=== PATIENT | male | born 1960 | race Caucasian/White ===

== ENCOUNTER → 2017-08-12 07:57 | Outpatient (CLI) | payer OTHER, SELFPAY ==
[2017-08-12 09:59] LABS: Anion Gap 6 (5-15); BUN 15 mg/dL (7-18); BUN/Creat Ratio 13.4 RATIO (10-20); Calcium,Total 8.3 mg/dL (8.5-10.1); Chloride 109 mmol/L (98-107); Cholesterol 171 mg/dL (200); Creatinine, Serum 1.12 mg/dL (0.70-1.30); EST Glomerular Filtration Rate 72 mL/min (>60); Est Glom Filt Rate - Afr Amer 88 mL/min (>60); Glucose 97 mg/dL (74-106); High Density Lipoprotein 51 mg/dL; Potassium 4.2 mmol/L (3.5-5.1); Sodium Level 139 mmol/L (136-145); Triglycerides 56 mg/dL; Very Low Density Lipoprotein 11 mg/dL (5-40)
== END ==
PROVIDERS: Family Provider Family Medicine; PCP Family Medicine; Visit Provider Family Medicine
DX: I10 Essential (primary) hypertension (principal)
CPT/HCPCS: 36415; 80048; 80061

== ENCOUNTER → 2017-09-03 09:03 | Outpatient (CLI) | payer OTHER, SELFPAY | PROVIDERS: Family Provider Family Medicine; PCP Family Medicine; Visit Provider Family Medicine | DX: N52.9 Male erectile dysfunction, unspecified (principal) | CPT/HCPCS: 36415; 84403 ==

== ENCOUNTER 2018-03-03 09:02 | Day surgery (SDC) | payer OTHER, SELFPAY ==
[2018-03-03] VITALS (9 sets, daily range): BP systolic 120–157; BP diastolic 82–103; PULSE 59–94; RESP 14–18; TEMP 35.9–36.8; O2SAT 60–100; BMI 24.4
--- NOTE | 2018-03-03 10:22 | PCM.HP.STD ---
Problem List (1) Personal history of colonic polyps Status: Acute History of Present Illness Date of Admission: 03/03/18 The patient is a 57 year old M was a personal history of colon polyps. States he had a colonoscopy 3 years ago and 3 polyps removed at that time all benign. He denies any bright red blood per rectum or melena. No abdominal pain. No change in bowel habits. No unexpected weight loss. He otherwise enjoys good health. His is Anai Past Medical History Allergies No Known Allergies Allergy (Verified 03/02/18 09:12) Home Medications: Ambulatory Orders Medication Instructions Recorded NK 03/02/18 Smoking Status: Former smoker Tobacco Use: Non-smoker Review of Systems Constitutional: Denies: Anorexia HEENT: Denies: Difficulty Swallowing Cardiovascular: Denies: Chest Pain, Claudication Respiratory: Denies: Cough Gastrointestinal: Denies: Abdominal Pain, Melena Endocrine: Denies: Change in Body Habitus VTE Information - Inpt Only VTE Present on Admission: No Patient Problems: Active and Suspected Problems Personal history of colonic polyps (Acute) - Physical Exam General: Alert, Oriented x3, Cooperative Oral: Moist Mucosa Neck: Supple Lungs: Clear to auscultation Cardiovascular: Regular rate, Regular Rhythm Abdomen: Bowel Sounds Present, Soft, Non Tender Extremities: No Calf Tenderness Psych/Mental Status: Normal Affect Vital Signs Temp Pulse Resp BP Pulse Ox 98.3 F 63 18 143/89 H 98 03/03/18 09:20 03/03/18 09:20 03/03/18 09:20 03/03/18 09:20 03/03/18 09:20 Oxygen Delivery Method Room Air Weight: 179 lb 14.355 oz Body Mass Index (BMI) 24.4 Assessment/Plan All Active Problems Personal history of colonic polyps (Acute) I am recommending the patient a surveillance colonoscopy. He is aware of the technique, benefits, risks, alternatives. He has had an opportunity to ask and have questions answered. We will proceed as noted. He presents via our open access program today. Yuri Patel M.D., F.A.C.S.
--- NOTE | 2018-03-03 11:04 | OP.ENDO_ITS ---
Patient Name: Ronni Strange Procedure Date: 03/03/2018 10:29 AM Date of : 1960 Age: 57 Procedure: Colonoscopy Indications: High risk colon cancer surveillance: Personal history of colonic polyps Providers: Yuri Patel MD Referring MD: Yuri Patel MD Medicines: Midazolam 5 mg IV, Meperidine 150 mg IV Patient Profile: Last Colonoscopy: 3 years ago. Complications: No immediate complications. Procedure: Pre-Anesthesia Assessment: - Prior to the procedure, a History and Physical was performed, and patient medications and allergies were reviewed. The patient's tolerance of previous anesthesia was also reviewed. The risks and benefits of the procedure and the sedation options and risks were discussed with the patient. All questions were answered, and informed consent was obtained. Prior Anticoagulants: The patient has taken no previous anticoagulant or antiplatelet agents. ASA Grade Assessment: II - A patient with mild systemic disease. After reviewing the risks and benefits, the patient was deemed in satisfactory condition to undergo the procedure. After I obtained informed consent, the scope was passed under direct vision. Throughout the procedure, the patient's blood pressure, pulse, and oxygen saturations were monitored continuously. The colonoscope was introduced through the anus and advanced to the cecum, identified by appendiceal orifice and ileocecal valve. The colonoscopy was performed without difficulty. The patient tolerated the procedure well. The quality of the bowel preparation was good. The ileocecal valve and the appendiceal orifice were photographed. Moderate Sedation: Moderate (conscious) sedation was personally administered by the endoscopist. The following parameters were monitored: oxygen saturation, heart rate, blood pressure, and response to care. Total physician intraservice time was 15 minutes. Scope In: 10:41:44 AM Scope Withdrawal Time 0 hours 10 minutes 58 seconds Scope Out: 10:59:26 AM Total Procedure Duration Time 0 hours 17 minutes 42 seconds Findings: The perianal and digital rectal examinations were normal. Scattered diverticula were found in the sigmoid colon. The exam was otherwise without abnormality. Impression: - Diverticulosis in the sigmoid colon. - The examination was otherwise normal. - No specimens collected. Recommendation: - Discharge patient to home. - Resume previous diet. - Continue present medications. - Repeat colonoscopy in 5 years for surveillance. Procedure Code(s): --- Professional --- 54849, Colonoscopy, flexible; diagnostic, including collection of specimen(s) by brushing or washing, when performed (separate procedure) 66959, 59, Moderate sedation services provided by the same physician or other qualified health skin care specialist performing the diagnostic or therapeutic service that the sedation supports, requiring the presence of an independent trained observer to assist in the monitoring of the patient's level of consciousness and physiological status; initial 15 minutes of intraservice time, patient age 5 years or older Diagnosis Code(s): --- Professional --- Z86.010, Personal history of colonic polyps K57.30, Diverticulosis of large intestine without perforation or abscess without bleeding CPT copyright 2017 [employer]. All rights reserved. The codes documented in this report are preliminary and upon catalyst impregnator review may be revised to meet current compliance requirements. Yuri Patel MD 03/03/2018 11:04:22 AM This report has been signed electronically. Number of Addenda: 0 Note Initiated On: 03/03/2018 10:29 AM
--- OUTSIDE RECORDS SUMMARY | 2018-06-04 15:44 | XMS RPT_ITS ---
:1960 Author Organization OHIP Care Team Providers Name Role Phone BERNARDINO ANNE III Attending Unavailable Cebul, Yuri Attending Unavailable Cebul, Yuri Referring Unavailable Cebul III, Bernardino Primary Care Unavailable CebulYuri Attending Unavailable CebulYuri Referring Unavailable Cebul III, Bernardino Primary Care Unavailable CebulYuri Consulting Unavailable Cebul III, Bernardino Attending Unavailable Cebul III, Bernardino Primary Care Unavailable Cebul III, Bernardino Referring Unavailable Cebul III, Bernardino Attending Unavailable Cebul III, Bernardino Referring Unavailable Cebul III, Bernardino Primary Care Unavailable Nurse, Marcelle Attending Unavailable Cebul III, Bernardino Referring Unavailable PROBLEMS PROBLEMS No Problem Records FoundPROCEDURES PROCEDURES No Procedure Records FoundRESULTS RESULTS OPERATIVE REPORT - Observed: 03/03/2018 Status: F Source: [facility] ENDOSCOPY 11:04 AM [facility] REPOSITORY [facility] Medical Records Department [address] [place] [address] Operative Report - Endoscopy MR#: [id number] Acct: [id number] Name: RONNI STRANGE Rep #: [id number] : 1960 57 From: Yuri Anne MD PCP: Bernardino Anne III, MD Status: REG SD Patient Name: Ronni Strange Procedure Date: 03/03/2018 10:29 AM Date of : 1960 Age: 57 Procedure: Colonoscopy Indications: High risk colon cancer surveillance: Personal history of colonic polyps Providers: Yuri Anne MD Referring MD: Yuri Anne MD Medicines: Midazolam 5 mg IV, Meperidine 150 mg IV Patient Profile: Last Colonoscopy: 3 years ago. Complications: No immediate complications. Procedure: Pre-Anesthesia Assessment: - Prior to the procedure, a History and Physical was performed, and patient medications and allergies were reviewed. The patient's tolerance of previous anesthesia was also reviewed. The risks and benefits of the procedure and the sedation options and risks were discussed with the patient. All questions were answered, and informed consent was obtained. Prior Anticoagulants: The patient has taken no previous anticoagulant or antiplatelet agents. ASA Grade Assessment: II - A patient with mild systemic disease. After reviewing the risks and benefits, the patient was deemed in satisfactory condition to undergo the procedure. After I obtained informed consent, the scope was passed under direct vision. Throughout the procedure, the patient's blood pressure, pulse, and oxygen saturations were monitored continuously. The colonoscope was introduced through the anus and advanced to the cecum, identified by appendiceal orifice and ileocecal valve. The colonoscopy was performed without difficulty. The patient tolerated the procedure well. The quality of the bowel preparation was good. The ileocecal valve and the appendiceal orifice were photographed. Moderate Sedation: Moderate (conscious) sedation was personally administered by the endoscopist. The following parameters were monitored: oxygen saturation, heart rate, blood pressure, and response to care. Total physician intraservice time was 15 minutes. Scope In: 10:41:44 AM Scope Withdrawal Time 0 hours 10 minutes 58 seconds Scope Out: 10:59:26 AM Total Procedure Duration Time 0 hours 17 minutes 42 seconds Findings: The perianal and digital rectal examinations were normal. Scattered diverticula were found in the sigmoid colon. The exam was otherwise without abnormality. Impression: - Diverticulosis in the sigmoid colon. - The examination was otherwise normal. - No specimens collected. Recommendation: - Discharge patient to home. - Resume previous diet. - Continue present medications. - Repeat colonoscopy in 5 years for surveillance. Procedure Code(s): --- Professional --- 54229, Colonoscopy, flexible; diagnostic, including collection of specimen(s) by brushing or washing, when performed (separate procedure) 22933, 59, Moderate sedation services provided by the same physician or other qualified health home care physical therapist performing the diagnostic or therapeutic service that the sedation supports, requiring the presence of an independent trained observer to assist in the monitoring of the patient's level of consciousness and physiological status; initial 15 minutes of intraservice time, patient age 5 years or older Diagnosis Code(s): --- Professional --- Z86.010, Personal history of colonic polyps K57.30, Diverticulosis of large intestine without perforation or abscess without bleeding CPT copyright 2017 [employer]. All rights reserved. The codes documented in this report are preliminary and upon division roadmaster review may be revised to meet current compliance requirements. Yuri Anne MD 03/03/2018 11:04:22 AM This report has been signed electronically. Number of Addenda: 0 Note Initiated On: 03/03/2018 10:29 AM 03/03/18 1104 Date Yuri Anne MD Cosigner Signature: Date (if indicated) CC: Bernardino Anne III, MD; Yuri Anne MD Date Dictated: 03/03/18 1029 Date Transcribed: Nuclear Fuel Enrichment Technician: RUTH Signed HISTORY AND PHYSICAL Observed: 03/03/2018 Status: F Source: [place] EXAM 10:34 AM [facility] REPOSITORY [facility] Medical Records Department [address] [place] [address] History and Physical 03/03/18 1022 MR#: [id number] Acct: [id number] Name: RONNI STRANGE Rep #: [id number] : 1960 57 From: Yuri Anne MD PCP: Bernardino Anne III, MD Status: REG [facility] Y Location: EN Problem List (1) Personal history of colonic polyps Status: Acute History of Present Illness Date of Admission: 03/03/18 The patient is a 57 year old M was a personal history of colon polyps. States he had a colonoscopy 3 years ago and 3 polyps removed at that time all benign. He denies any bright red blood per rectum or melena. No abdominal pain. No change in bowel habits. No unexpected weight loss. He otherwise enjoys good health. His is Idalia Past Medical History Allergies No Known Allergies Allergy (Verified 03/02/18 09:12) Home Medications: Ambulatory Orders Medication Instructions Recorded NK 03/02/18 Smoking Status: Former smoker Tobacco Use: Non-smoker Review of Systems Constitutional: Denies: Anorexia HEENT: Denies: Difficulty Swallowing Cardiovascular: Denies: Chest Pain, Claudication Respiratory: Denies: Cough Gastrointestinal: Denies: Abdominal Pain, Melena Endocrine: Denies: Change in Body Habitus VTE Information - Inpt Only VTE Present on Admission: No Patient Problems: Active and Suspected Problems Personal history of colonic polyps (Acute) - Physical Exam General: Alert, Oriented x3, Cooperative Oral: Moist Mucosa Neck: Supple Lungs: Clear to auscultation Cardiovascular: Regular rate, Regular Rhythm Abdomen: Bowel Sounds Present, Soft, Non Tender Extremities: No Calf Tenderness Psych/Mental Status: Normal Affect Vital Signs Temp Pulse Resp BP Pulse Ox 98.3 F 63 18 143/89 H 98 03/03/18 09:20 03/03/18 09:20 03/03/18 09:20 03/03/18 09:20 03/03/18 09:20 Oxygen Delivery Method Room Air Weight: 179 lb 14.355 oz Body Mass Index (BMI) 24.4 Assessment/Plan All Active Problems Personal history of colonic polyps (Acute) I am recommending the patient a surveillance colonoscopy. He is aware of the technique, benefits, risks, alternatives. He has had an opportunity to ask and have questions answered. We will proceed as noted. He presents via our open access program today. Yuri Anne M.D., F.A.C.S. 03/03/18 1034 <Electronically signed by Yuri Anne MD> Date Yuri Anne MD Cosigner Signature: Date (if applicable) CC: Bernardino Anne III, MD; Yuri Anne MD Signed TESTOSTERONE, SERUM TOTAL Collected: 09/03/2017 Status: F Source: [place] 9:08 AM [facility] REPOSITORY TYPE CODE TESTS RESULT OUT OF REFERENCE UNITS RANGE LAB L509.3000 ng/dL Testosterone Normal 523.82 Result Comment: NORMAL REFERENCE RANGES MALE AGE <50 123.06 - 813.86 ng/dL MALE AGE >50 89.98 - 780.10 ng/dL FEMALE PREMENOPAUSE AGE 21 - 60 9.01 - 47.94 ng/dL FEMALE POSTMENOPAUSE AGE 45 - 89 <7.00 - 45.62 ng/dL REFERENCE RANGE AND METHODOLOGY CHANGED 03/05/2017 Performed By: #### L509.3000 #### [facility] [place], [address] PROGRESS Observed: 08/28/2017 Status: COMPLETED Source: [facility] 9:13 AM [facility] REPOSITORY O ID: [id number] Author: Bernardino Anne III Service: (none) Author Type: Physician Type: Progress Notes Filed: 08/28/2017 12:46 PM Note Text: SUBJECTIVE: Chief Complaint: Ronni Strange is a 56 year old male who presents for comprehensive problem evaluation. New concerns today include 1. hypertension: home log [id number]/75- 153/80 2. hx of colon polyps in 2014; tubular adenoma 3. lab review 4. fell down couple of steps in the dark. Thinks he may have sustained a groin injury and some erectile dysfunction. Able to experience erection upon awakening and has normal libido 5. pain bottom L heel much of the time. Limping. Sometimes worse after sitting for awhile or upon awakening. Tried heel cushion. 6. previous episode of anxiety, he never took any of the prescribed ativan. Exercises regularly Minimal exercise associated with work or ADL's Prostate cancer screening up to date Yes Colon cancer screening is up to date Yes Last colonoscopy was done 2014 Cholesterol screening up to date Yes Current Outpatient Prescriptions on File Prior to Visit: LORazepam (ATIVAN) 0.5 mg tab Take 1 tablet by mouth three times daily as needed. No current facility-administered medications on file prior to visit. PAST MEDICAL HISTORY Diagnosis Date - Anxiety 06/13/2014 - Benign colon polyp 02/28/15 - Essential hypertension, benign 06/13/2014 - Lumbago PAST SURGICAL HISTORY Procedure Laterality Date - COLONOSCOP W/ OR W/O [facility]SH SPEC 02/28/15 Colonoscopy [facility] out pt - VASECTOMY FAMILY HISTORY Problem Relation Age of Onset - Hypertension Father - colon polyps [Other] [OTHER] Father benign Social History Marital status: Spouse name: Years of education: Number of children: 2 Occupational History Occupation Employer Comment [employer] Social History Main Topics Smoking status: Former Smoker Packs/day: 0.00 Years: 0.00 Smokeless tobacco: Never Used Comment: occassional smokers in 's Alcohol use: Yes Drug use: No Sexual activity: Yes Partners with: Female control/protection: Surgical Immunization History Administered Date(s) Administered DT(PEDIATRIC) 03/07/1975 04/21/1980 06/14/1996 DTP/HIB 01/29/1963 02/26/1963 03/23/1963 05/18/1964 09/11/1967 MMR 03/07/1975 OPV 01/29/1963 02/28/1963 04/02/1963 09/11/1967 Tdap (Age 7+) 08/20/2006 ACTIVE PROBLEM LIST Essential Hypertension, Benign Anxiety Bph (Benign Prostatic Hypertrophy) With Urinary Retention Family History of Colonic Polyps Benign Colon Polyp REVIEW OF SYSTEMS General: Denies fever, chills, night sweats, or changes in weight. Dermatologic: Denies any new skin conditions, rashes or changing moles. Eyes: ENT: Respiratory: Denies any cough, dyspnea, or wheezing. Cardiovascular: Denies any chest pain with exertion or at rest, palpitations, syncope, or edema. Gastrointestinal: Denies any nausea, vomiting, abdominal pain, heartburn, changes in bowel habit, Denies any rectal bleeding. Genitourinary: Denies Denies problems with urinary stream., Denies dysuria, frequency, urgency, incontinence, erectile dysfunction, hematuria and nocturia., see HPI Musculoskeletal: Denies any joint swelling, crepitus, joint pain, or loss of range of motion., Denies back pain. Neurologic: Denies any headaches, tremors, dizziness, vertigo, memory loss, confusion., Denies weakness, numbness or tingling. Psychiatric: Denies any sleeping problems, history of abuse, marital discord., Denies any anxiety or depression. Hematologic/Lymphatic/Immunologic: Denies anemia, bruising, bleeding abnormalities. Endocrine: Denies any heat or cold intolerance, polyuria or polydipsia. OBJECTIVE: PHYSICAL EXAMINATION: BP 131/87 Pulse 61 Resp 16 Ht 182.9 cm (6') Wt 84.4 kg (186 lb) BMI 25.23 kg/m? GENERAL APPEARANCE Well appearing, alert, in no acute distress, well-hydrated, well nourished. SKIN: Skin color, texture, turgor normal, no suspicious rashes or lesions HEAD: No significant findings. NECK: Supple, no lymphadenopathy, normal thyroid, no carotid bruits and no JVD BACK: Back symmetric, Normal curvature, No CVAT. LUNGS: normal pulmonary exam and clear to auscultation and percussion HEART: Normal PMI, Regular rate and rhythm, Normal heart sounds, S1 and S2 and No murmurs. BREASTS: ABDOMEN: Soft, Non-tender, No palpable masses, Normal bowel sounds, No hepatosplenomegaly. and no abdominal bruits. EXTREMTIES: extremities normal, no deformities, no skin discoloration, no edema, normal pulses bilaterally., strong femoral pulses Localized tenderness bilaterally left heel NEURO: Awake, alert and oriented x 3, Reflexes symmetrical, Normal gait, No involuntary motions., muscle tone normal, muscle strength normal GENITALIA: Penis normal, no urethral discharge, scrotum normal to palpation, no hernias RECTAL: Anus normal, no anorectal masses, Prostate normal size, consistency, no nodules, and no tenderness ASSESSMENT: hypertension--well controlled groin muscle strain?resolved Erectile dysfunction?probably a psychological component Left plantar fasciitis History of tubular adenoma polyp of the colon, 2015 PLAN: healthy diet and regular physical activity consider viagra if needed monitor home BP early breastfeeding care specialist testosterone level stretching exercises for bottoms of feet. wear supportive shoes with good arch support screening colonoscopy 40 min TOMASA Grajeda MD, III MD CNOV Observed: 08/28/2017 Status: COMPLETED Source: [facility] 8:40 AM [facility] Office Visit (FAMPWS) RONNI STRANGE ([id number]) 1960 M Date Time Provider Department 08/28/17 8:40 AM BERNARDINO ANNE III During your visit today, we recorded the following information about you: Pulse Respiration Blood pressure Weight 61/minute 16/minute 131/87 84.4 kg Height 1.829 m Bernardino Anne III MD 08/28/2017 12:46 PM Signed SUBJECTIVE: Chief Complaint: Ronni Strange is a 56 year old male who presents for comprehensive problem evaluation. New concerns today include 1. hypertension: home log [id number]/75- 153/80 2. hx of colon polyps in 2014; tubular adenoma 3. lab review 4. fell down couple of steps in the dark. Thinks he may have sustained a groin injury and some erectile dysfunction. Able to experience erection upon awakening and has normal libido 5. pain bottom L heel much of the time. Limping. Sometimes worse after sitting for awhile or upon awakening. Tried heel cushion. 6. previous episode of anxiety, he never took any of the prescribed ativan. Exercises regularly Minimal exercise associated with work or ADL's Prostate cancer screening up to date Yes Colon cancer screening is up to date Yes Last colonoscopy was done 2014 Cholesterol screening up to date Yes Current Outpatient Prescriptions on File Prior to Visit: LORazepam (ATIVAN) 0.5 mg tab Take 1 tablet by mouth three times daily as needed. No current facility-administered medications on file prior to visit. PAST MEDICAL HISTORY Diagnosis Date - Anxiety 06/13/2014 - Benign colon polyp 02/28/15 - Essential hypertension, benign 06/13/2014 - Lumbago PAST SURGICAL HISTORY Procedure Laterality Date - COLONOSCOP W/ OR W/O BRSH SPEC 02/28/15 Colonoscopy [facility] out pt - VASECTOMY FAMILY HISTORY Problem Relation Age of Onset - Hypertension Father - colon polyps [Other] [OTHER] Father benign Social History Marital status: Spouse name: Years of education: Number of children: 2 Occupational History Occupation Employer Comment [employer] Social History Main Topics Smoking status: Former Smoker Packs/day: 0.00 Years: 0.00 Smokeless tobacco: Never Used Comment: occassional smokers in Alcohol use: Yes Drug use: No Sexual activity: Yes Partners with: Female control/protection: Surgical Immunization History Administered Date(s) Administered DT(PEDIATRIC) 03/07/1975 04/21/1980 06/14/1996 DTP/HIB 01/29/1963 02/26/1963 03/23/1963 05/18/1964 09/11/1967 MMR 03/07/1975 OPV 01/29/1963 02/28/1963 04/02/1963 09/11/1967 Tdap (Age 7+) 08/20/2006 ACTIVE PROBLEM LIST Essential Hypertension, Benign Anxiety Bph (Benign Prostatic Hypertrophy) With Urinary Retention Family History of Colonic Polyps Benign Colon Polyp REVIEW OF SYSTEMS General: Denies fever, chills, night sweats, or changes in weight. Dermatologic: Denies any new skin conditions, rashes or changing moles. Eyes: ENT: Respiratory: Denies any cough, dyspnea, or wheezing. Cardiovascular: Denies any chest pain with exertion or at rest, palpitations, syncope, or edema. Gastrointestinal: Denies any nausea, vomiting, abdominal pain, heartburn, changes in bowel habit, Denies any rectal bleeding. Genitourinary: Denies Denies problems with urinary stream., Denies dysuria, frequency, urgency, incontinence, erectile dysfunction, hematuria and nocturia., see HPI Musculoskeletal: Denies any joint swelling, crepitus, joint pain, or loss of range of motion., Denies back pain. Neurologic: Denies any headaches, tremors, dizziness, vertigo, memory loss, confusion., Denies weakness, numbness or tingling. Psychiatric: Denies any sleeping problems, history of abuse, marital discord., Denies any anxiety or depression. Hematologic/Lymphatic/Immunologic: Denies anemia, bruising, bleeding abnormalities. Endocrine: Denies any heat or cold intolerance, polyuria or polydipsia. OBJECTIVE: PHYSICAL EXAMINATION: BP 131/87 Pulse 61 Resp 16 Ht 182.9 cm (6') Wt 84.4 kg (186 lb) BMI 25.23 kg/m? GENERAL APPEARANCE Well appearing, alert, in no acute distress, well-hydrated, well nourished. SKIN: Skin color, texture, turgor normal, no suspicious rashes or lesions HEAD: No significant findings. NECK: Supple, no lymphadenopathy, normal thyroid, no carotid bruits and no JVD BACK: Back symmetric, Normal curvature, No CVAT. LUNGS: normal pulmonary exam and clear to auscultation and percussion HEART: Normal PMI, Regular rate and rhythm, Normal heart sounds, S1 and S2 and No murmurs. BREASTS: ABDOMEN: Soft, Non-tender, No palpable masses, Normal bowel sounds, No hepatosplenomegaly. and no abdominal bruits. EXTREMTIES: extremities normal, no deformities, no skin discoloration, no edema, normal pulses bilaterally., strong femoral pulses Localized tenderness bilaterally left heel NEURO: Awake, alert and oriented x 3, Reflexes symmetrical, Normal gait, No involuntary motions., muscle tone normal, muscle strength normal GENITALIA: Penis normal, no urethral discharge, scrotum normal to palpation, no hernias RECTAL: Anus normal, no anorectal masses, Prostate normal size, consistency, no nodules, and no tenderness ASSESSMENT: hypertension--well controlled groin muscle strain?resolved Erectile dysfunction?probably a psychological component Left plantar fasciitis History of tubular adenoma polyp of the colon, 2014 PLAN: healthy diet and regular physical activity consider viagra if needed monitor home BP early breastfeeding care specialist testosterone level stretching exercises for bottoms of feet. wear supportive shoes with good arch support screening colonoscopy 40 min TOMASA Grajeda MD, III MD Referring Provider: SELF [200] Allergies As of Date: 08/28/2017 Noted Allergy Reaction TAMBACOR [Other] 01/04/2005 Date Reviewed: 08/28/2017 Reviewed by: Brianda ([facility]) JAVIER Max - Fully Assessed Reason for Visit: Physical [83] Primary Visit Diagnosis:Essential hypertension, benign [I10] Other Visit Diagnoses:Anxiety [F41.9] Benign colon polyp [K63.5] Encounter for routine adult medical exam with abnormal findings [Z00.01] Plantar fasciitis [M72.2] Erectile dysfunction, unspecified erectile dysfunction type [N52.9] Prescriptions as of 08/28/2017 Sig: LORAZEPAM 0.5 MG TABLET Take 1 tablet by mouth three * Problem List As Of Date 08/28/2017 Noted Resolved Lumbago [M54.5] 06/13/2014 Prepatellar bursitis [M70.40] INVALID FOR*06/13/2014 Essential hypertension, benign [I10] INVALID FOR* Anxiety [F41.9] INVALID FOR*08/28/2017 Groin strain [S76.219A] INVALID FOR*2015 Family history of colonic polyps [Z83.71] INVALID FOR* Benign colon polyp [K63.5] INVALID FOR* More... Plantar fasciitis [M72.2] INVALID FOR* More... Erectile dysfunction [N52.9] INVALID FOR* Encounter Status:Closed by BERNARDINO ANNE III, MD on 08/28/17 BASIC METABOLIC Collected: 08/12/2017 Status: F Source: [place] PROFILE (BMP) 8:07 AM [facility] REPOSITORY TYPE CODE TESTS RESULT OUT OF RANGE REFERENCE UNITS LAB L501.0100 74-106 mg/dL Normal GLU 97 Result Comment: Please note revised GLUCOSE reference range effective 2017. LAB L501.1000 7-18 mg/dL Normal BUN 15 LAB L501.1100 0.70-1.30 mg/dL Normal CREAT,SERUM 1.12 Result Comment: The validity of the calculated GFR AND GFRAA in patients over 70 years has not been determined. Clinical correlation is essential. LAB L501.1110 >60 mL/min Normal EST GFR 72 Result Comment: Non- GFR Calc LAB L501.1115 >60 mL/min Normal EST GFR - AA 88 Result Comment: GFR Calc LAB L501.1300 10-20 RATIO Normal BUN/CRE 13.4 LAB L501.2200 8.5-10.1 mg/dL Low CA 8.3 LAB L501.5300 136-145 mmol/L NA Normal 139 LAB L501.5600 3.5-5.1 mmol/L K Normal 4.2 LAB L501.5900 98-107 mmol/L High CL 109 LAB L501.6100 21.0-32.0 mmol/L Normal CO2 24.0 LAB L501.6200 5-15 Normal GAP 6 Performed By: #### L500.2500, L500.4100 #### [facility] [address] [place], [address] LIPID PROFILE Collected: 08/12/2017 Status: F Source: [place] 8:07 AM [facility] REPOSITORY TYPE CODE TESTS RESULT OUT OF RANGE REFERENCE UNITS LAB L501.4900 200 mg/dL Normal CHOL 171 Result Comment: <200 mg/dL Desirable 200-240 mg/dL Borderline >240 mg/dL High Risk LAB L501.5000 mg/dL Normal TRIG 56 Result Comment: The drugs N-Acetylcysteine and Metamizole may falsely depress this assay. Serum Triglycerides Reference Interval Normal <150 mg/dL Borderline high 150 - 199 mg/dL High 200 - 499 mg/dL Very High > or = 500 mg/dL LAB L501.6400 mg/dL Normal HDL 51 Result Comment: The drugs N-Acetylcysteine and Metamizole may falsely depress this assay. Reference Range HDL <40 mg/dL Low HDL Cholesterol HDL >or= 60 mg/dL High HDL Cholesterol LAB L501.6500 0-130 mg/dL Normal LDL 109 LAB L501.6600 5-40 mg/dL Normal VLDL 11 Performed By: #### L500.2500, L500.4100 #### [facility] [address] [place], [address] ALLERGIES ALLERGIES DATE TYPE / CODE NAME / CODE REACTION SEVERITY SOURCE 03/02/2018 Drug No Known Unknown [place] Allergy/[id number](S Allergies/F [facility]) [id number]( Hospital XNORM) Repository 01/04/2005 Miscellaneous OTHER [facility] Allergy/[id number]([facility] NOMED CT) Repository ENCOUNTERS ENCOUNTERS ADMIT/DISCHARGE ACCOUNT ADMITTING ENCOUNTER LOCATION SOURCE NUMBER CLASS 03/03/2018 [id number] Ambulatory BMSBuilding:[place] Repository 03/03/2018/03/03/20 [id number] Ambulatory [address] ing:EN Repository 01/09/2018/01/10/20 [id number] Ambulatory BMSBuilding:[address] [place] [address] [place].[facility] Repository 09/03/2017 [id number] Ambulatory [facility] ing:LAB Repository 08/28/2017/06/15 [id number] Ambulatory [address] Repository 08/12/2017 [id number] [facility] ing:CAMILA Repository E PAYERS PAYERS ENCOUNTER GUARANTOR PAYER SUBSCRIBER SOURCE 03/03/2018 RONNI D Primary Insurance:[facility] IDALIA STRANGE[facility] PASTURE [facility] [id number] Number: Repository [address]Jdz: [phone] [id number] [phone] () Date:1838-[birth year][address] [address], [place] [address]AG: CHECK WEBSITE 03/03/2018 Secondary NOT GIVENUNK [place] Insurance:SELF PAY [facility] Number: Effective Repository Date:2018-03-03 03/03/2018 RONNI D Primary Insurance:[facility] IDALIA [address] [id number] [facility]: [facility] [id number], [place] Number: Repository [id number]: 330 [id number] [phone] () Date:3486-18-86[address] [address]XJ[place], [place] [address]XM: CHECK WEBSITE 03/03/2018 Secondary NOT GIVENUNK [place] Insurance:SELF PAY [facility] Number: Effective Repository Date:2018-01-12 01/09/2018 RONNI D Primary Insurance:[facility] IDALIA WHITENER15 [facility]: [facility] [id number], [place] Number: Repository [address]Bxm: 330 [id number] [phone] () Date:8708-05-50[address] [address], [place] [address]KZ: CHECK WEBSITE 01/09/2018 Secondary NOT GIVENUNK [place] Insurance:SELF PAY [facility] Number: Effective Repository Date:2018-01-09 09/03/2017 RONNI D Primary Insurance:[facility] IDALIA WHITENER15 [facility]: [facility] [id number], [place] Number: Repository [id number]: [phone] [id number] [phone] () Date:8636-83-11[address] [address]QEMT[place], [place] [address]GU: CHECK WEBSITE 09/03/2017 Secondary NOT GIVENUNK [place] Insurance:SELF PAY [facility] Number: Effective Repository Date:2017-09-03 08/12/2017 Ronni Olguin Primary Insurance:[facility] IDALIA Cochran [id number] [place], [place] [address]INNERDOB: [facility] [id number], [place] Number: Repository [id number]: 330 [id number] [phone] () Date:4889-11-11[address] [address]L, [place] [address]XP: CHECK WEBSITE 08/12/2017 Secondary NOT GIVENUNK [place] Insurance:SELF PAY [facility] Number: Effective Repository Date:2017-07-11
== END 2018-03-03 11:55 | disposition home or self-care (01) ==
LOC: EN 09:03
PROVIDERS: Family Provider Family Medicine; PCP Family Medicine; Referring Provider Surgery; Visit Provider Surgery
PROC: 0DJD8ZZ Inspection of Lower Intestinal Tract, Via Natural or Artificial Opening Endoscopic (ICD-10-PCS; CPT 45378; principal; 2018-03-03 09:55)
DX: Z12.11 Encounter for screening for malignant neoplasm of colon (principal); K57.30 Diverticulosis of large intestine without perforation or abscess without bleeding; Z86.010 Personal history of colon polyps; Z87.891 Personal history of nicotine dependence
CPT/HCPCS: 45378; 99152; 99153; J7120

== ENCOUNTER → 2018-06-30 | Outpatient (CLI) | payer OTHER, SELFPAY ==
[2018-05-20 11:11] VITALS: BMI 24.4
[2018-06-30 13:17] LABS: Anion Gap 8 (5-15); BUN 14 mg/dL (7-18); BUN/Creat Ratio 13.7 RATIO (10-20); Calcium,Total 8.6 mg/dL (8.5-10.1); Chloride 108 mmol/L (98-107); Cholesterol 186 mg/dL (200); Creatinine, Serum 1.02 mg/dL (0.70-1.30); EST Glomerular Filtration Rate 80 mL/min (>60); Est Glom Filt Rate - Afr Amer 97 mL/min (>60); Glucose 95 mg/dL (74-106); High Density Lipoprotein 55 mg/dL; Potassium 3.9 mmol/L (3.5-5.1); Sodium Level 142 mmol/L (136-145); Triglycerides 59 mg/dL; Very Low Density Lipoprotein 12 mg/dL (5-40)
== END | disposition home or self-care (01) ==
LOC: LAB 12:24
PROVIDERS: Family Provider Family Medicine; PCP Family Medicine; Referring Provider Nurse Practitioner Family; Visit Provider Nurse Practitioner Family
DX: I10 Essential (primary) hypertension (principal)
CPT/HCPCS: 36415; 80048; 80061

== ENCOUNTER → 2018-07-10 | Outpatient (CLI) | payer OTHER, SELFPAY ==
[2018-05-20 11:11] VITALS: BMI 24.4
[2018-07-10 15:34] LABS: PSA,Total - Annual Screen 0.44 ng/mL (0.00-4.00)
== END | disposition home or self-care (01) ==
LOC: LAB 14:16
PROVIDERS: Family Provider Family Medicine; PCP Family Medicine; Referring Provider Family Medicine; Visit Provider Family Medicine
DX: Z12.5 Encounter for screening for malignant neoplasm of prostate (principal)
CPT/HCPCS: 36415; 84153; G0103

== ENCOUNTER → 2018-07-22 13:41 | Outpatient (CLI) | payer OTHER, SELFPAY ==
[2018-07-22 07:24] VITALS: BMI 24.4
--- NOTE | 2018-07-22 07:30 | LES_PTH ---
PATIENT: MARIA L NAIDU [facility] U#:[id number] AGE/SX: 64/M ROOM: RE07/22/[address]: Dr. Yuri Patel MD : 1960 BED: DIS: SPEC #: [id number] RECD: 07/22/18 10:47 STATUS: DARRIAN REQ #: [id number] CULLEN: 07/22/18 07:[address]: Yuri Patel DEPT: SURGICAL PATHOLOGY RECD BY: Kurt Garcia Tissues: A - Skin of upper extremity and shoulder B - Skin of upper extremity and shoulder Procedures: Surgery Specimen Level IV Comments: @ Originally on account #[id number] Req #[id number] HEADER OPERATION: Excision bilateral shoulder lesions PRE-OP DIAGNOSIS: Neoplasm TISSUE SUBMITTED: A - Right apical posterior shoulder, B - Left apical posterior shoulder MICROSCOPIC DIAGNOSIS A. Right apical posterior shoulder, skin lesion, excision: Basal cell carcinoma, solid pattern, entirely excised. B. Left apical posterior shoulder, skin lesion, excision: Epidermal inclusion cyst. CE:marisela 07/23/18 MICROSCOPIC DESCRIPTION Slides are reviewed. GROSS DESCRIPTION A - Received in fixative is one container labeled with the patient's name and designated right apical posterior shoulder. The specimen consists of a monzon-white skin ellipse measuring 2 x 1.1 cm and up to 0.6 cm in thickness. There is a monzon, raised lesion on the surface measuring 0.9 x 0.6 cm. The specimen is inked, serially sectioned and submitted entirely in two cassettes as follows: 1 - lesion, 2 - tips of skin ellipse. B - Received in fixative is one container labeled with the patient's name and designated left apical posterior shoulder. The specimen consists of a monzon-white skin ellipse measuring 2 x 1 cm and up to 0.6 cm in thickness. There is a monzon, raised lesion on the surface measuring 1 x 0.5 cm. Serial sections reveal a cyst filled with monzon-yellowish material. The entire specimen is submitted in two cassettes as follows: 1 - tips of skin ellipse, 2 - lesion. / SJ:marisela 07/22/18 TC:0 CPT:
== END ==
PROVIDERS: Family Provider Family Medicine; PCP Family Medicine; Referring Provider Surgery; Visit Provider Surgery
DX: C44.612 Basal cell carcinoma of skin of right upper limb, including shoulder (principal); L72.0 Epidermal cyst
CPT/HCPCS: 88305

== ENCOUNTER → 2019-12-07 | Outpatient (CLI) | payer OTHER, SELFPAY ==
[2018-07-29 08:21] VITALS: BMI 24.4
[2019-12-07 10:38] LABS: ALB/GLOB Ratio 1.4 RATIO (0.9-2.4); AST(SGOT) 21 U/L (15-37); Alanine Aminotransfer ALT/SGPT 43 U/L (16-61); Albumin, Serum 4.2 g/dL (3.2-5.0); Alkaline Phosphatase 65 U/L (45-117); Anion Gap 3 (5-15); BUN 21 mg/dL (7-18); BUN/Creat Ratio 16.5 RATIO (10-20); Calcium,Total 8.8 mg/dL (8.5-10.1); Chloride 106 mmol/L (98-107); Cholesterol 191 mg/dL (200); Creatinine, Serum 1.27 mg/dL (0.70-1.30); EST Glomerular Filtration Rate 62 mL/min (>60); Est Glom Filt Rate - Afr Amer 75 mL/min (>60); Globulin 2.9 g/dL (2.2-4.2); Glucose 93 mg/dL (74-106); High Density Lipoprotein 67 mg/dL; Potassium 4.1 mmol/L (3.5-5.1); Protein, Total 7.1 g/dL (6.4-8.2); Sodium Level 139 mmol/L (136-145); Triglycerides 49 mg/dL; Very Low Density Lipoprotein 10 mg/dL (5-40)
== END | disposition home or self-care (01) ==
LOC: LAB 09:02
PROVIDERS: PCP Family Medicine; Referring Provider Family Medicine; Visit Provider Family Medicine
DX: Z00.00 Encounter for general adult medical examination without abnormal findings (principal); Z13.220 Encounter for screening for lipoid disorders; Z13.1 Encounter for screening for diabetes mellitus
CPT/HCPCS: 36415; 80053; 80061

== ENCOUNTER → 2019-12-29 | Outpatient (CLI) | payer OTHER, SELFPAY ==
[2018-07-29 08:21] VITALS: BMI 24.4
[2020-01-06 12:07] LABS: Testosterone, Free 15.49 ng/dL (5.00-21.00)
[2020-01-06 13:09] LABS: Testosterone, % Free 2.09 % (1.50-4.20); Testosterone, Total 741 ng/dL (264-916)
== END | disposition home or self-care (01) ==
LOC: LAB 09:13
PROVIDERS: PCP Family Medicine; Referring Provider Family Medicine; Visit Provider Family Medicine
DX: R79.89 Other specified abnormal findings of blood chemistry (principal)
CPT/HCPCS: 36415; 84402; 84403

== ENCOUNTER → 2020-11-22 11:14 | Outpatient (CLI) | payer BC, SELFPAY ==
[2020-11-22 13:06] LABS: Vitamin D,25 Hydroxy 49.4 ng/mL
[2020-11-22 13:19] LABS: Anion Gap 3 (5-15); BUN 17 mg/dL (7-18); Calcium,Total 8.9 mg/dL (8.5-10.1); Chloride 108 mmol/L (98-107); Cholesterol 213 mg/dL (200); Creatinine, Serum 1.06 mg/dL (0.70-1.30); EST Glomerular Filtration Rate 76 mL/min (>60); Est Glom Filt Rate - Afr Amer 92 mL/min (>60); Glucose 97 mg/dL (74-106); High Density Lipoprotein 68 mg/dL; PSA,Total- Diagnostic 0.47 ng/mL (0.0-4.0); Potassium 4.1 mmol/L (3.5-5.1); Sodium Level 137 mmol/L (136-145); Thyroid Stim Hormone (TSH) 2.54 uIU/mL (0.358-3.74); Triglycerides 63 mg/dL; Very Low Density Lipoprotein 13 mg/dL (5-40)
== END ==
PROVIDERS: PCP Family Medicine; Referring Provider Family Medicine; Visit Provider Family Medicine
DX: Z00.00 Encounter for general adult medical examination without abnormal findings (principal)
CPT/HCPCS: 36415; 80048; 80061; 82306; 84153; 84403; 84443

== ENCOUNTER → 2022-01-22 | Outpatient (CLI) | payer OTHER, SELFPAY ==
[2022-01-22 08:58] LABS: Absolute Lymphocyte Count 2.01 X10^3/uL (0.83-4.51); Absolute Neutrophil Count 2.7 X10^3/uL (2.0-7.7); Basophil# 0.05 X10^3/uL; Basophil% 0.9 % (0-1); Eosinophil# 0.12 X10^3/uL; Eosinophils% 2.2 % (0-5); Hematocrit 44.8 % (40-54); Hemoglobin 15.6 g/dL (13.0-16.5); Lymphocyte # 2.01 X10^3/ul (0.83-4.51); Lymphocyte % 37.5 % (19-41); Mean Corp Hgb Conc 34.8 g/dL (32-36); Mean Corpuscular Hgb 30.6 pg (27.0-32.0); Mean Platelet Vol. 10.2 fl (6.2-12.0); Monocyte# 0.43 X10^3/uL; NRBC Flagged by Analyzer 0 % (0-5); Neutrophil # 2.74 X10^3/uL (2.7-7.7); Neutrophil % 51.2 % (47-70); Platelet Count 255 K/mm3 (150-450); RBC Distribution Width CV 11.9 % (11.6-14.6); RBC Distribution Width SD 38.1 fl (35.1-43.9); Red Blood Count 5.09 M/mm3 (4.6-6.2); White Blood Count 5.4 K/mm3 (4.4-11.0)
[2022-01-22 09:30] LABS: Vitamin D,25 Hydroxy 56.2 ng/mL
[2022-01-22 09:45] LABS: ALB/GLOB Ratio 1.3 RATIO (0.9-2.4); AST(SGOT) 15 U/L (15-37); Alanine Aminotransfer ALT/SGPT 42 U/L (16-61); Alkaline Phosphatase 70 U/L (45-117); Anion Gap 7 (5-15); BUN 24 mg/dL (7-18); BUN/Creat Ratio 20.7 RATIO (10-20); Calcium,Total 8.5 mg/dL (8.5-10.1); Chloride 106 mmol/L (98-107); Cholesterol 218 mg/dL (200); Creatinine, Serum 1.16 mg/dL (0.70-1.30); EST Glomerular Filtration Rate 69 mL/min (>60); Est Glom Filt Rate - Afr Amer 83 mL/min (>60); Globulin 3.1 g/dL (2.2-4.2); Glucose 100 mg/dL (74-106); High Density Lipoprotein 74 mg/dL; PSA,Total - Annual Screen 0.62 ng/mL (0.00-4.00); Protein, Total 7.1 g/dL (6.4-8.2); Sodium Level 138 mmol/L (136-145); Thyroid Stim Hormone (TSH) 3.58 uIU/mL (0.358-3.74); Triglycerides 58 mg/dL; Very Low Density Lipoprotein 12 mg/dL (5-40)
[2022-01-27 15:07] LABS: Testosterone, Free 14.25 ng/dL (5.00-21.00)
[2022-01-28 09:55] LABS: Testosterone, % Free 2.54 % (1.50-4.20); Testosterone, Total 561 ng/dL (264-916)
== END | disposition home or self-care (01) ==
LOC: LAB 08:19
PROVIDERS: PCP Internal Medicine; Referring Provider Internal Medicine; Visit Provider Internal Medicine
DX: Z00.00 Encounter for general adult medical examination without abnormal findings (principal); Z13.220 Encounter for screening for lipoid disorders; Z13.1 Encounter for screening for diabetes mellitus; Z12.5 Encounter for screening for malignant neoplasm of prostate; E55.9 Vitamin D deficiency, unspecified
CPT/HCPCS: 36415; 80053; 80061; 82306; 84153; 84402; 84403; 84443; 85025; G0103

== ENCOUNTER → 2023-02-14 | Outpatient (CLI) | payer OTHER, SELFPAY ==
[2023-02-14 09:36] LABS: Absolute Lymphocyte Count 1.72 X10^3/uL (0.83-4.51); Absolute Neutrophil Count 2.6 X10^3/uL (2.0-7.7); Basophil# 0.03 X10^3/uL; Basophil% 0.6 % (0-1); Eosinophil# 0.15 X10^3/uL; Hematocrit 46.5 % (40-54); Lymphocyte # 1.72 X10^3/ul (0.83-4.51); Lymphocyte % 34.5 % (19-41); Mean Corp Hgb Conc 34.4 g/dL (32-36); Mean Corpuscular Hgb 30.1 pg (27.0-32.0); Mean Corpuscular Volume 87.6 fL (80-94); Mean Platelet Vol. 10.1 fl (6.2-12.0); Monocyte# 0.43 X10^3/uL; Monocyte% 8.6 % (0-10); NRBC Flagged by Analyzer 0 % (0-5); Neutrophil # 2.63 X10^3/uL (2.7-7.7); Neutrophil % 52.7 % (47-70); Platelet Count 215 K/mm3 (150-450); RBC Distribution Width CV 11.8 % (11.6-14.6); RBC Distribution Width SD 37.7 fl (35.1-43.9); Red Blood Count 5.31 M/mm3 (4.6-6.2)
[2023-02-14 10:27] LABS: ALB/GLOB Ratio 1.2 RATIO (0.9-2.4); AST(SGOT) 19 U/L (15-37); Alanine Aminotransfer ALT/SGPT 38 U/L (16-61); Alkaline Phosphatase 73 U/L (45-117); Anion Gap 4 (5-15); BUN 24 mg/dL (7-18); BUN/Creat Ratio 18.8 RATIO (10-20); Calcium,Total 8.8 mg/dL (8.5-10.1); Chloride 108 mmol/L (98-107); Cholesterol 222 mg/dL (200); Creatinine, Serum 1.28 mg/dL (0.70-1.30); EST Glomerular Filtration Rate 61 mL/min (>60); Est Glom Filt Rate - Afr Amer 74 mL/min (>60); Globulin 3.2 g/dL (2.2-4.2); Glucose 106 mg/dL (74-106); High Density Lipoprotein 59 mg/dL; PSA,Total - Annual Screen 0.58 ng/mL (0.00-4.00); Protein, Total 7.2 g/dL (6.4-8.2); Sodium Level 138 mmol/L (136-145); Thyroid Stim Hormone (TSH) 5.18 uIU/mL (0.358-3.74); Triglycerides 62 mg/dL; Very Low Density Lipoprotein 12 mg/dL (5-40)
[2023-02-14 10:33] LABS: Vitamin B12 438 pg/mL (211-911); Vitamin D,25 Hydroxy 56.5 ng/mL
[2023-02-14 13:43] LABS: Free T3 2.9 pg/mL (2.18-3.98); T4 Free Direct 0.82 ng/dL (0.76-1.46)
[2023-02-21 19:07] LABS: Testosterone, % Free 3.13 % (1.50-4.20); Testosterone, Total 540 ng/dL (264-916)
== END | disposition home or self-care (01) ==
LOC: LAB 08:37
PROVIDERS: PCP Internal Medicine; Referring Provider Internal Medicine; Visit Provider Internal Medicine
DX: Z00.00 Encounter for general adult medical examination without abnormal findings (principal); E55.9 Vitamin D deficiency, unspecified; Z12.5 Encounter for screening for malignant neoplasm of prostate; E53.8 Deficiency of other specified B group vitamins; R79.89 Other specified abnormal findings of blood chemistry; Z13.220 Encounter for screening for lipoid disorders; R53.83 Other fatigue; E29.1 Testicular hypofunction
CPT/HCPCS: 36415; 80053; 80061; 82306; 82607; 84153; 84402; 84403; 84439; 84443; 84481; 85025; G0103

== ENCOUNTER 2023-06-02 06:22 | Day surgery (SDC) | payer OTHER, SELFPAY ==
[2023-06-02 06:44] VITALS: BP 135/89; PULSE 67; RESP 14; TEMP 36.7; O2SAT 99; BMI 24.1
[2023-06-02] MEDS: Lactated Ringers 1,000 ML 15 ML IV (06:49)
--- NOTE | 2023-06-02 07:04 | PCM.HP.STD ---
[facility] - General General Date of Service: 06/02/23 Chief Complaint: Surveillance colonoscopy [facility] Narrative MARIA L NAIDU, is a 62 M who presents via open access today for a colonoscopy. He has a family history of colon cancer in his father. He has had a previous colonoscopy February 2015 with 2 polyps removed. He has a known history of diverticulosis and his most recent colonoscopy was March 03, 2018. [facility] Medical History (Updated 06/02/23 @ 07:[address] Yuri Patel MD) Anxiety Family history of colon cancer in father History of irregular heartbeat Hypertension Normal colonoscopy Personal history of colonic polyps Sinusitis Skin lesions Wears contact lenses Wears glasses Home Medications cholecalciferol (vitamin D3) 125 mcg (5,000 unit) capsule 125 mcg PO DAILY 01/10/22 [History Last Taken 06/01/23] magnesium amino acid chelate 100 mg tablet 100 mg PO DAILY 01/10/22 [History Last Taken 06/01/23] zinc acetate 50 mg (zinc) capsule 50 mg PO DAILY 01/10/22 [History Last Taken 06/01/23] Allergy/AdvReac Type Severity Reaction Status Date / Time flecainide [From Tambocor] Allergy Intermediate fingers Verified 05/29/23 11:48 swelled up Family History (Updated 03/13/23 @ 10:58 by Jelly Solomon) Father Hypertension Colon cancer Surgical History History of colonoscopy (~03/03/18) History of rhinoplasty History of vasectomy Social History adopted: No household members: spouse housing: house current occupational status: employed current occupation: self history of recent travel: No sexually active: Yes Smoking Status: Former smoker alcohol intake: current alcohol intake frequency: a few times a month substance use type: does not use diet: other well-balanced diet: daily or most days caffeine: Yes eating out: rarely or never during the past year weight has: remained stable what type of physical activity do you participate in: aerobics and weight training frequency: 3-4 times per week sushil/sabianism: Evangelical seatbelt use: always do you feel safe at home: Yes ROS Constitutional Constitutional: Reports systems reviewed and no addt'l complaints, except as documented Cardiovascular Cardiovascular: Denies chest pain Respiratory/Chest Respiratory/Chest: Denies shortness of breath at rest Gastrointestinal Gastrointestinal: Denies abdominal pain, change in bowel habits, hematochezia or melena Vital Signs Vital Signs Vital Signs: 06/02/23 06:44 06/02/23 06:44 Temperature 98.0 F Temperature Source Temporal Pulse Rate 67 Respiratory Rate 14 Respiratory Pattern Normal Blood Pressure 135/89 H Blood Pressure Mean 104 Blood Pressure Source Monitor Blood Pressure Position Semi-Fowlers Blood Pressure Location Left Arm Pulse Ox 99 Oxygen Delivery Method Room Air Weight Weight: 177 lb 14.609 oz Body Mass Index (BMI) 24.1 Physical Exam Const alert, oriented x3 and no apparent distress General Appearance: cooperative and comfortable Eyes General Eye: normal appearance of both eyes Neck General: normal visual inspection Chest inspection of chest normal Resp Effort and Inspection: able to speak in complete sentences and symmetric chest movement Auscultation: clear to auscultation bilaterally Cardio regular rate and regular rhythm GI soft to palpation, non-tender and non-distended Extremity no calf tenderness Neuro oriented x3 Psych thought process normal Assessment & Plan Assessment/Plan (1) Personal history of colonic polyps: (2) Family history of colon cancer in father: PLAN: Plan 62-year-old gentleman presents for colonoscopy. He has both a personal history of colon polyps and a family history of colon cancer in his father. He presents via open access today. He is aware of the technique, benefit, risk, alternatives. He has had an opportunity to ask and have questions answered. We will proceed as noted. Yuri Patel M.D., F.A.C.S.
[2023-06-02 07:45] VITALS: BP 111/90; BP 135/89; PULSE 57; RESP 14; TEMP 36.7; O2SAT 100
--- NOTE | 2023-06-02 07:47 | OP.COLON_ITS ---
Patient Name: Ronni Strange Procedure Date: 06/02/2023 6:55 AM Date of : 1960 Age: 62 Procedure: Colonoscopy Indications: High risk colon cancer surveillance: Personal history of colonic polyps Providers: Yuri Patel MD Referring MD: Emma Webb Medicines: See the Anesthesia note for documentation of the administered medications Patient Profile: Last Colonoscopy: February 2018. Complications: No immediate complications. Procedure: Pre-Anesthesia Assessment: - Prior to the procedure, a History and Physical was performed, and patient medications and allergies were reviewed. The patient's tolerance of previous anesthesia was also reviewed. The risks and benefits of the procedure and the sedation options and risks were discussed with the patient. All questions were answered, and informed consent was obtained. Prior Anticoagulants: The patient has taken no anticoagulant or antiplatelet agents. ASA Grade Assessment: II - A patient with mild systemic disease. After reviewing the risks and benefits, the patient was deemed in satisfactory condition to undergo the procedure. After I obtained informed consent, the scope was passed under direct vision. Throughout the procedure, the patient's blood pressure, pulse, and oxygen saturations were monitored continuously. The Colonoscope was introduced through the anus and advanced to the cecum, identified by appendiceal orifice and ileocecal valve. The colonoscopy was performed without difficulty. The patient tolerated the procedure well. The quality of the bowel preparation was good. The ileocecal valve and the appendiceal orifice were photographed. Scope In: 7:23:44 AM Scope Withdrawal Time 0 hours 11 minutes 0 seconds Scope Out: 7:40:56 AM Total Procedure Duration Time 0 hours 17 minutes 12 seconds Findings: The digital rectal exam findings include non-thrombosed external hemorrhoids, non-thrombosed internal hemorrhoids and internal hemorrhoids that prolapse with straining, but spontaneously regress to the resting position (Grade II). Pertinent negatives include normal prostate (size, shape, and consistency). Multiple diverticula were found in the sigmoid colon. Impression: - Non-thrombosed external hemorrhoids, non-thrombosed internal hemorrhoids and internal hemorrhoids that prolapse with straining, but spontaneously regress to the resting position (Grade II) found on digital rectal exam. - Diverticulosis in the sigmoid colon. - No specimens collected. Recommendation: - Discharge patient to home. - Resume previous diet. - Continue present medications. - Repeat colonoscopy in 5 years for surveillance. Procedure Code(s): --- Professional --- 03163, Colonoscopy, flexible; diagnostic, including collection of specimen(s) by brushing or washing, when performed (separate procedure) Diagnosis Code(s): --- Professional --- Z86.010, Personal history of colonic polyps K64.1, Second degree hemorrhoids K64.4, Residual hemorrhoidal skin tags K57.30, Diverticulosis of large intestine without perforation or abscess without bleeding CPT copyright 2021 [employer]. All rights reserved. The codes documented in this report are preliminary and upon military technology manager review may be revised to meet current compliance requirements. Yuri Patel MD 06/02/2023 7:46:19 AM This report has been signed electronically. Number of Addenda: 0 Note Initiated On: 06/02/2023 6:55 AM
--- NOTE | 2023-06-02 07:47 | OP.CCLET_ITS ---
06/02/2023 [facility] [address] [place] [address] Re : Colonoscopy procedure for Ronni Strange Dear Dr. Webb This procedure was performed on Friday, June 02, 2023. My impressions and recommendations are as follows: Impressions : - Non-thrombosed external hemorrhoids, non-thrombosed internal hemorrhoids and internal hemorrhoids that prolapse with straining, but spontaneously regress to the resting position (Grade II) found on digital rectal exam. - Diverticulosis in the sigmoid colon. - No specimens collected. Recommendations : - Discharge patient to home. - Resume previous diet. - Continue present medications. - Repeat colonoscopy in 5 years for surveillance. My findings are described in the full procedure note, which is enclosed. If I can be of further assistance, please feel free to contact me at Doctor phone number(s): Work: . Sincerely, Yuri Patel MD 06/02/2023 7:46:19 AM This report has been signed electronically.
[2023-06-02 07:50] VITALS: BP 111/65; BP 135/89; PULSE 61; RESP 14; O2SAT 100
[2023-06-02 07:55] VITALS: BP 112/70; BP 135/89; PULSE 51; RESP 14; O2SAT 99
[2023-06-02 08:00] VITALS: BP 127/82; BP 135/89; PULSE 55; RESP 14; TEMP 36.9; O2SAT 100
[2023-06-02 08:24] VITALS: BP 135/89
== END 2023-06-02 08:40 | disposition home or self-care (01) ==
LOC: EN 06:22 → AC 06:24
PROVIDERS: PCP Internal Medicine; Referring Provider Internal Medicine; Visit Provider Surgery
PROC: 0DJD8ZZ Inspection of Lower Intestinal Tract, Via Natural or Artificial Opening Endoscopic (ICD-10-PCS; CPT 45378; principal; 2023-06-02 07:25)
DX: Z12.11 Encounter for screening for malignant neoplasm of colon (principal); Z80.0 Family history of malignant neoplasm of digestive organs; K64.4 Residual hemorrhoidal skin tags; K57.30 Diverticulosis of large intestine without perforation or abscess without bleeding; Z86.010 Personal history of colon polyps; Z87.891 Personal history of nicotine dependence; I10 Essential (primary) hypertension; Z98.52 Vasectomy status; K64.1 Second degree hemorrhoids
CPT/HCPCS: 45378; J7120; J2405

== ENCOUNTER → 2024-02-17 | Outpatient (CLI) | payer OTHER, SELFPAY ==
[2024-02-17 12:08] LABS: Absolute Lymphocyte Count 2.09 X10^3/uL (0.83-4.51); Absolute Neutrophil Count 2.2 X10^3/uL (2.0-7.7); Basophil# 0.04 X10^3/uL; Basophil% 0.8 % (0-1); Eosinophil# 0.18 X10^3/uL; Eosinophils% 3.6 % (0-5); Hemoglobin 15.3 g/dL (13.0-16.5); Lymphocyte # 2.09 X10^3/ul (0.83-4.51); Lymphocyte % 41.5 % (19-41); Mean Corp Hgb Conc 33.3 g/dL (32-36); Mean Corpuscular Hgb 29.8 pg (27.0-32.0); Mean Corpuscular Volume 89.5 fL (80-94); Mean Platelet Vol. 10.5 fl (6.2-12.0); Monocyte# 0.47 X10^3/uL; Monocyte% 9.3 % (0-10); NRBC Flagged by Analyzer 0 % (0-5); Neutrophil # 2.23 X10^3/uL (2.7-7.7); Neutrophil % 44.2 % (47-70); Platelet Count 232 K/mm3 (150-450); RBC Distribution Width CV 12.1 % (11.6-14.6); RBC Distribution Width SD 39.7 fl (35.1-43.9); Red Blood Count 5.14 M/mm3 (4.6-6.2)
[2024-02-17 12:23] LABS: Vitamin D,25 Hydroxy 57.6 ng/mL
[2024-02-17 12:26] LABS: Hemoglobin A1c 5.2 % (3.8-5.6)
[2024-02-17 12:38] LABS: ALB/GLOB Ratio 1.3 RATIO (0.9-2.4); AST(SGOT) 20 U/L (15-37); Alanine Aminotransfer ALT/SGPT 42 U/L (16-61); Albumin, Serum 4.1 g/dL (3.2-5.0); Alkaline Phosphatase 68 U/L (45-117); Anion Gap 6 (5-15); BUN 29 mg/dL (7-18); BUN/Creat Ratio 22.7 RATIO (10-20); Calcium,Total 9.3 mg/dL (8.5-10.1); Chloride 106 mmol/L (98-107); Cholesterol 232 mg/dL (200); Creatinine, Serum 1.28 mg/dL (0.70-1.30); EST Glomerular Filtration Rate 61 mL/min (>60); Est Glom Filt Rate - Afr Amer 73 mL/min (>60); Free T3 2.5 pg/mL (2.18-3.98); Globulin 3.1 g/dL (2.2-4.2); Glucose 109 mg/dL (74-106); High Density Lipoprotein 72 mg/dL; Magnesium 2.3 mg/dL (1.6-2.6); PSA,Total - Annual Screen 0.61 ng/mL (0.00-4.00); Potassium 4.4 mmol/L (3.5-5.1); Protein, Total 7.2 g/dL (6.4-8.2); Sodium Level 138 mmol/L (136-145); Triglycerides 71 mg/dL; Very Low Density Lipoprotein 14 mg/dL (5-40)
[2024-02-22 18:07] LABS: Insulin Level 4.3 uIU/mL (2.6-24.9); Testosterone, % Free 3.76 % (1.50-4.20); Testosterone, Free 25.87 ng/dL (5.00-21.00); Testosterone, Total 688 ng/dL (264-916)
== END | disposition home or self-care (01) ==
LOC: BIMLAB 09:08
PROVIDERS: PCP Internal Medicine; Referring Provider Internal Medicine; Visit Provider Internal Medicine
DX: Z00.00 Encounter for general adult medical examination without abnormal findings (principal); Z12.5 Encounter for screening for malignant neoplasm of prostate; Z13.220 Encounter for screening for lipoid disorders; Z86.0100 Personal history of colon polyps, unspecified; E55.9 Vitamin D deficiency, unspecified; R53.83 Other fatigue; R79.89 Other specified abnormal findings of blood chemistry; R73.09 Other abnormal glucose; E29.1 Testicular hypofunction
CPT/HCPCS: 36415; 80053; 80061; 82306; 83036; 83525; 83735; 84153; 84402; 84403; 84439; 84443; 84481; 85025; G0103